=== PATIENT | female | born 1965 | race Caucasian/White ===

== ENCOUNTER → 2017-04-17 | Outpatient (CLI) | payer MEDICARE ==
[2017-04-17 08:50] LABS: Basophils # (A) 0.1 k/uL (0-0.2); Basophils % (A) 1 %; CH 29.8; CHCM 33.1; Eosinophils # (A) 0.1 k/uL (0-0.7); Eosinophils % (A) 2 %; HCT 44.1 % (34.0-46.0); HDW 2.39; HGB 14.5 gm/dL (11.4-16.0); Luc # (Auto) 0.24; Luc % (Auto) 3; Lymphocytes % (A) 26 %; MCH 29.7 pg (25.0-35.0); MCHC 32.8 g/dL (31.0-37.0); MCV 90.5 fL (80.0-100.0); Mean Platelet Volume 7.2; Monocytes # (A) 0.5 k/uL (0-1.0); Monocytes % (A) 6 %; Neutrophils # (A) 4.9 k/uL (1.3-7.7); Neutrophils % (A) 62 %; RBC 4.87 m/uL (3.80-5.40); RDW 12.7 % (11.5-15.5); WBC 7.8 k/uL (3.8-10.6); WBC (Perox) 7.82
[2017-04-17 09:27] LABS: ALT 45 U/L (9-52); AST 30 U/L (14-36); Alkaline Phosphatase 88 U/L (38-126); Anion Gap 12 mmol/L; Blood Urea Nitrogen 15 mg/dL (7-17); Calcium 9.9 mg/dL (8.4-10.2); Carbon Dioxide 27 mmol/L (22-30); Chloride 102 mmol/L (98-107); Cholesterol 218 mg/dL (<200); Glucose 90 mg/dL (74-99); HDL Cholesterol 84 mg/dL (40-60); Non-African American GFR(MDRD) >60 (>60 ml/min/1.73 sqM); Potassium 4.6 mmol/L (3.5-5.1); Sodium 141 mmol/L (137-145); Total Bilirubin 0.6 mg/dL (0.2-1.3); Total Protein 7.5 g/dL (6.3-8.2)
[2017-04-17 16:39] LABS: Iron Saturation 25.88 (12.00-45.00); Iron(FE) 88 ug/dL (50-170); Total Iron Binding Capacity 340 ug/dL (228-460)
[2017-04-17 17:14] LABS: Treponemal Ab Non-Reactive (Non-Reactive)
[2017-04-18 11:10] LABS: Gliadin AB IgA, Deaminated NEGATIVE (NEGATIVE); Gliadin AB IgG, Deaminated NEGATIVE (NEGATIVE); Gliadin AB IgG, Unit <0.4 U/mL; Tis Transglutaminase IgA Unit <0.5 AI; Tis Transglutaminase IgG Unit <0.8 U/mL
== END | disposition home or self-care (01) ==
LOC: LABMAIN 07:40
PROVIDERS: ATTEND Family Medicine
DX: E78.5 Hyperlipidemia, unspecified (principal); R53.83 Other fatigue; L30.9 Dermatitis, unspecified; Z11.3 Encounter for screening for infections with a predominantly sexual mode of transmission
CPT/HCPCS: 36415; 80053; 80061; 80074; 82306; 82607; 82728; 82747; 83516; 83540; 83550; 84439; 84443; 85025; 86780; 87390; 87491; 87591

== ENCOUNTER → 2017-05-23 | Outpatient (CLI) | payer MEDICARE ==
--- NOTE | 2017-05-27 09:48 | MM ---
Reason for exam: screening (asymptomatic). Last mammogram was performed 1 year ago. History: Patient is postmenopausal. Family history of breast cancer in paternal cousin at age 48. Physical Findings: A clinical breast exam by your physician is recommended on an annual basis and results should be correlated with mammographic findings. MG 3D Screening Mammo W/Cad Bilateral CC and MLO view(s) were taken. Prior study comparison: May 22, 2016, bilateral MG 3d diag mammo w/cad JEN. May 04, 2015, mammogram, performed at [facility]. The breast tissue is extremely dense which could obscure a lesion on mammography. There is no discrete abnormality. No significant changes when compared with prior studies. ASSESSMENT: Negative, BI-RAD 1 RECOMMENDATION: Routine screening mammogram of both breasts in 1 year.
== END | disposition home or self-care (01) ==
LOC: RADMAMWWP 08:15
PROVIDERS: ATTEND Family Medicine
DX: Z12.31 Encounter for screening mammogram for malignant neoplasm of breast (principal)
CPT/HCPCS: 77063; G0202

== ENCOUNTER → 2018-03-19 | Outpatient (CLI) | payer MEDICARE ==
--- NOTE | 2018-03-19 15:31 | US ---
EXAMINATION TYPE: US transvaginal DATE OF EXAM: 03/19/2018 COMPARISON: US 2013 CLINICAL HISTORY: R10.2 PELVIC AND PERINEAL PAIN. Pelvic pain x couple months, worse on right side an d lower back, 2, para 2, partial hysterectomy 2001. TECHNIQUE: Transvaginal exam only per ordering physician. Date of LMP: 2001 EXAM MEASUREMENTS: Uterus: surgically absent Endometrial Stripe: surgically absent Right Ovary: not seen Left Ovary: not seen 1. Uterus: surgically absent 2. Endometrium: surgically absent 3. Right Ovary: not seen due to overlying peristalsing bowel 4. Left Ovary: not seen due to overlying peristalsing bowel 5. Bilateral Adnexa: wnl 6. Posterior cul-de-sac: wnl IMPRESSION: Surgical absence of the uterus and nonvisualization of the ovaries, likely due to atrophy . If the ovaries are present and there is further concern pelvic MRI could be performed.
== END | disposition home or self-care (01) ==
LOC: RADUSWWP 14:06
PROVIDERS: ATTEND Family Medicine
DX: R10.2 Pelvic and perineal pain (principal); Z90.710 Acquired absence of both cervix and uterus
CPT/HCPCS: 76830

== ENCOUNTER → 2018-09-25 | Outpatient (CLI) | payer MEDICARE ==
--- NOTE | 2018-09-28 09:43 | MM ---
Reason for exam: screening (asymptomatic). Last mammogram was performed 1 year and 4 months ago. History: Patient is postmenopausal. Family history of breast cancer in paternal cousin at age 48. Physical Findings: A clinical breast exam by your physician is recommended on an annual basis and results should be correlated with mammographic findings. MG 3D Screening Mammo W/Cad Bilateral CC and MLO view(s) were taken. Prior study comparison: May 23, 2017, bilateral MG 3d screening mammo w/cad. May 22, 2016, bilateral MG 3d diag mammo w/cad JEN. The breast tissue is extremely dense which could obscure a lesion on mammography. There is no discrete abnormality. No significant changes when compared with prior studies. ASSESSMENT: Negative, BI-RAD 1 RECOMMENDATION: Routine screening mammogram of both breasts in 1 year.
== END | disposition home or self-care (01) ==
LOC: RADMAMWWP 15:19
PROVIDERS: ATTEND Obstetrics & Gynecology
DX: Z12.31 Encounter for screening mammogram for malignant neoplasm of breast (principal)
CPT/HCPCS: 77063; 77067

== ENCOUNTER → 2018-10-02 | Outpatient (CLI) | payer MEDICARE ==
[2018-10-02 08:04] LABS: Basophils # (A) 0.1 k/uL (0-0.2); Basophils % (A) 1 %; Eosinophils # (A) 0.1 k/uL (0-0.7); Eosinophils % (A) 2 %; HCT 43.8 % (34.0-46.0); HGB 14.3 gm/dL (11.4-16.0); Lymphocytes # (A) 1.7 k/uL (1.0-4.8); Lymphocytes % (A) 26 %; MCH 30.3 pg (25.0-35.0); MCHC 32.7 g/dL (31.0-37.0); MCV 92.6 fL (80.0-100.0); Mean Platelet Volume 7.2; Monocytes # (A) 0.4 k/uL (0-1.0); Monocytes % (A) 6 %; Neutrophils # (A) 4.3 k/uL (1.3-7.7); Neutrophils % (A) 64 %; Platelet Count 273 k/uL (150-450); RBC 4.74 m/uL (3.80-5.40); RDW 13.3 % (11.5-15.5); WBC 6.8 k/uL (3.8-10.6)
[2018-10-02 08:20] LABS: ALT 34 U/L (9-52); AST 32 U/L (14-36); Albumin 4.8 g/dL (3.5-5.0); Alkaline Phosphatase 67 U/L (38-126); Anion Gap 7 mmol/L; Blood Urea Nitrogen 11 mg/dL (7-17); Calcium 9.8 mg/dL (8.4-10.2); Carbon Dioxide 29 mmol/L (22-30); Chloride 106 mmol/L (98-107); Cholesterol 214 mg/dL (<200); Glucose 89 mg/dL (74-99); HDL Cholesterol 91 mg/dL (40-60); LDL Cholesterol,Calculated 109 mg/dL (0-99); Potassium 4.2 mmol/L (3.5-5.1); Sodium 142 mmol/L (137-145); Total Bilirubin 1.1 mg/dL (0.2-1.3); Total Protein 7.8 g/dL (6.3-8.2); Triglycerides 69 mg/dL (<150)
--- NOTE | 2018-10-02 08:38 | BD ---
EXAMINATION TYPE: Axial Bone Density DATE OF EXAM: 10/02/2018 COMPARISON: NONE CLINICAL HISTORY: Height: 5 FT 8 1/2 IN Weight: 119 FRAX RISK QUESTIONS: Secondary Osteoporosis: 3. Menopause before 45: YES RISK FACTORS HISTORY OF: Family History of Osteoporosis: YES Active: NO Postmenopausal woman: PART HYST AGE 37 MEDICATIONS: Additional Medications: GABAPENTIN, VIT D ,B12 INJECTION Additional History: FIBROMYALGIA,NERVE PAIN IN BOTH FEET EXAM MEASUREMENTS: Bone mineral densitometry was performed using the [employer] System. Bone mineral density as measured about the Lumbar spine is: ----- L1-L4(G/cm2): 0.857 T Score Values are as follows: ----- L2: -2.9 ----- L3: -2.6 ----- L4: -2.9 ----- L1-L4: -2.7 Bone mineral density has: DECREASED -1.6 % since study of: 2016 Bone mineral density about the R hip (g/cm2): 0.685 Bone mineral density about the L hip (g/cm2): 0.692 T Score values are as follows: -----R Neck: -2.5 -----L Neck: -2.5 -----R Total: -3.3 -----L Total: -3.1 Bone mineral density has: DECREASED -4.0 % since study of: 2016 IMPRESSION: Osteoporosis NOTE: T-SCORE=SD OF THE YOUNG ADULT MEAN.
== END | disposition home or self-care (01) ==
LOC: RADBDWWP 07:07
PROVIDERS: ATTEND Family Medicine
DX: M81.0 Age-related osteoporosis without current pathological fracture (principal); E78.5 Hyperlipidemia, unspecified
CPT/HCPCS: 36415; 77080; 80053; 80061; 84443; 85025

== ENCOUNTER → 2019-11-16 | Outpatient (CLI) | payer MEDICARE ==
--- NOTE | 2019-11-17 08:58 | MM ---
Reason for exam: additional evaluation requested from prior study. Last mammogram was performed 1 year and 2 months ago. History: Patient is postmenopausal. Family history of breast cancer in paternal cousin at age 48. Physical Findings: Nurse did not find any significant physical abnormalities on exam. MG 3D Diag Mammo W/Cad JEN Bilateral CC and MLO view(s) were taken. Prior study comparison: September 25, 2018, bilateral MG 3d screening mammo w/cad. May 23, 2017, bilateral MG 3d screening mammo w/cad. The breast tissue is extremely dense which could obscure a lesion on mammography. There are benign appearing vascular calcifications bilaterally. There is no discrete abnormality. These results were verbally communicated with the patient and result sheet given to the patient on 11/16/19. ASSESSMENT: Benign, BI-RAD 2 RECOMMENDATION: Routine screening mammogram of both breasts in 1 year. Manage on a clinical basis with regard to left pain axilla.
== END | disposition home or self-care (01) ==
LOC: RADMAMWWP 14:19
PROVIDERS: ATTEND Obstetrics & Gynecology
DX: N64.4 Mastodynia (principal)
CPT/HCPCS: 77066; G0279; 77062

== ENCOUNTER → 2020-01-14 | Outpatient (CLI) | payer MEDICARE ==
--- NOTE | 2020-01-14 10:21 | XR ---
EXAMINATION TYPE: XR chest 2V DATE OF EXAM: 01/14/2020 COMPARISON: NONE HISTORY: Shortness of breath TECHNIQUE: Frontal and lateral views of the chest are obtained. FINDINGS: Scattered senescent parenchymal changes noted. Hyperinflation compatible with COPD. No evidence for infiltrate. No evidence for atelectasis. Heart size is stable. Mediastinal structures are stable and grossly unremarkable. No evidence for hilar prominence. Degenerative changes dorsal spine. IMPRESSION: 1. No evidence for acute pulmonary disease.
== END | disposition home or self-care (01) ==
LOC: RADXRMAIN 09:50
PROVIDERS: ATTEND Family Medicine
DX: R91.8 Other nonspecific abnormal finding of lung field (principal)
CPT/HCPCS: 71046

== ENCOUNTER → 2020-11-29 | Outpatient (CLI) | payer MEDICARE ==
--- NOTE | 2020-12-01 11:53 | MM ---
Reason for exam: screening (asymptomatic). Last mammogram was performed 1 year ago. History: Patient is postmenopausal. Family history of breast cancer in paternal cousin at age 48. Physical Findings: A clinical breast exam by your physician is recommended on an annual basis and results should be correlated with mammographic findings. MG 3D Screening Mammo W/Cad Bilateral CC and MLO view(s) were taken. Prior study comparison: November 16, 2019, bilateral MG 3d diag mammo w/cad JEN. September 25, 2018, bilateral MG 3d screening mammo w/cad. The breast tissue is heterogeneously dense. This may lower the sensitivity of mammography. Benign vascular calcifications. No significant changes when compared with prior studies. ASSESSMENT: Negative, BI-RAD 1 RECOMMENDATION: Routine screening mammogram of both breasts in 1 year.
== END | disposition home or self-care (01) ==
LOC: RADMAMWWP 09:53
PROVIDERS: ATTEND Obstetrics & Gynecology
DX: Z12.31 Encounter for screening mammogram for malignant neoplasm of breast (principal)
CPT/HCPCS: 77063; 77067

== ENCOUNTER → 2021-02-26 | Outpatient (CLI) | payer MEDICARE ==
--- NOTE | 2021-02-26 18:39 | BD ---
EXAMINATION TYPE: Axial Bone Density DATE OF EXAM: 02/26/2021 COMPARISON: 10.02.2018 CLINICAL HISTORY: 55 YR OLD FEMALE......ICD-10 CODE: Z78.0 POST KATIE Height: 67.4 Weight: 127 FRAX RISK QUESTIONS: Family History (Parent hip fracture): YES Secondary Osteoporosis: YES 3. Menopause before 45: YES 5. Chronic liver disease: LIVER ENZYMES HIGH RISK FACTORS HISTORY OF: Family History of Osteoporosis: YES, GRANDMOTHER WITH FX Diet low in dairy products/other sources of calcium: YES Postmenopausal woman: YES, HYST AT AGE 37 Hyperparathyroidism: NO Adrenal Insufficiency: NO MEDICATIONS: Osteoporosis Medications: PRESCRIBED, BUT NEVER TOOK Additional Medications: VIT D, GABAPENTIN, HYPERCALCEMIA, XANAX, REFLUX MEDS, B12 INJ, MAGNESIUM Additional History: FIBROMYALGIA, NEUROPATHY IN BOTH FEET, HIATAL HERNIA , REFLUX, HYPERCALCEMIA, OST EOARTHRITIS, EXAM MEASUREMENTS: Bone mineral densitometry was performed using the [employer] System. Bone mineral density as measured about the Lumbar spine is: ----- L1-L4(G/cm2): 0.835 T Score Values are as follows: ----- L1: -2.7 ----- L2: -3.0 ----- L3: -2.7 ----- L4: -3.2 ----- L1-L4: -2.9 Bone mineral density has: Decreased -2.4% since study of: 10.02.2018 Bone mineral density about the R hip (g/cm2): 0.581 Bone mineral density about the L hip (g/cm2): 0.644 T Score values are as follows: -----R Neck: -2.6 -----L Neck: -2.6 -----R Total: -3.4 -----L Total: -2.9 Bone mineral density has: Increased 1.3% since study of: 10.02.2018 FRAX%s: THERE IS A 16.3% CHANCE FOR A MAJOR OSTEOPOROTIC FX AND A 2.0% FOR HIP.......PROBABILITY FOR FX IN 10 YRS TIME IMPRESSION: Osteoporosis (T Score less than -2.5). There is increased fracture risk and therapy is usually indicated based on age. Re-Screen 1-2 years. NOTE: T-SCORE=SD OF THE YOUNG ADULT MEAN.
== END | disposition home or self-care (01) ==
LOC: RADBDWWP 08:09
PROVIDERS: ATTEND Family Medicine
DX: M81.0 Age-related osteoporosis without current pathological fracture (principal); Z78.0 Asymptomatic menopausal state
CPT/HCPCS: 77080

== ENCOUNTER → 2021-08-02 | Outpatient (CLI) | payer MEDICARE ==
[2021-08-02 15:26] LABS: ALT 19 U/L (8-44); AST 26 U/L (13-35); Albumin 4.6 g/dL (3.8-4.9); Albumin/Globulin Ratio 1.65 (1.60-3.17); Alkaline Phosphatase 76 U/L (41-126); BUN/Creat Ratio 19.53 Ratio (12.00-20.00); Blood Urea Nitrogen 13.4 mg/dL (9.0-27.0); Calcium 9.5 mg/dL (8.7-10.3); Carbon Dioxide 23.7 mmol/L (20.0-27.5); Chloride 103 mmol/L (96-109); Globulin 2.8 g/dL (1.6-3.3); Glucose 92 mg/dL (70-110); LDL Cholesterol,Calculated 102.4 mg/dL (0.0-131.0); Non-African American GFR(CKD) 97.5 (60.0-200.0); Potassium 4.2 mmol/L (3.5-5.5); Sodium 139 mmol/L (135-145); Total Protein 7.4 g/dL (6.2-8.2); VLDL Calculation 12.18 mg/dL (5.00-40.00)
== END | disposition home or self-care (01) ==
LOC: LABWHC1 09:32
PROVIDERS: ATTEND Internal Medicine Interventional Cardiology
DX: R00.2 Palpitations (principal); E78.2 Mixed hyperlipidemia
CPT/HCPCS: 36415; 80053; 80061; 84443

== ENCOUNTER → 2021-11-30 | Outpatient (CLI) | payer MEDICARE ==
--- NOTE | 2021-11-30 12:07 | MM ---
Reason for Exam: Screening (asymptomatic). Last screening mammogram was performed 12 month(s) ago. Patient History: Menarche at age 13. First Full-Term at age 19. Hysterectomy at age 37. Postmenopausal. Paternal cousin had breast cancer, age 48. Risk Values: Samantha 5 year model risk: 0.9%. NCI Lifetime model risk: 5.9%. Prior Study Comparison: 09/25/2018 Bilateral Screening Mammogram, [facility]. 11/16/2019 Bilateral Diagnostic Mammogram, [facility]. 11/29/2020 Bilateral Screening Mammogram, [facility]. Tissue Density: The breast tissue is heterogeneously dense. This may lower the sensitivity of mammography. Findings: Analyzed By CAD. There are benign-appearing vascular calcifications in the bilateral breasts redemonstrated. There is no suspicious group of microcalcifications or new suspicious mass in either breast. Overall Assessment: Negative, BI-RAD 1 Management: Screening Mammogram of both breasts in 1 year. Some advise bilateral breast ultrasound surveillance in patient's with background dense tissue. Electronically signed and approved by: Zack Campbell M.D.
== END | disposition home or self-care (01) ==
LOC: RADMAMWWP 09:14
PROVIDERS: ATTEND Obstetrics & Gynecology
DX: Z12.31 Encounter for screening mammogram for malignant neoplasm of breast (principal); Z78.0 Asymptomatic menopausal state; Z80.3 Family history of malignant neoplasm of breast
CPT/HCPCS: 77063; 77067

== ENCOUNTER → 2022-12-02 | Outpatient (CLI) | payer MEDICARE ==
--- NOTE | 2022-12-02 09:43 | MM ---
Reason for Exam: Screening (asymptomatic). Last screening mammogram was performed 12 month(s) ago. Patient History: Menarche at age 13. First Full-Term at age 19. Hysterectomy at age 37. Postmenopausal. Paternal cousin had breast cancer, age 48. Risk Values: Samantha 5 year model risk: 0.9%. NCI Lifetime model risk: 5.7%. Prior Study Comparison: 11/16/2019 Bilateral Diagnostic Mammogram, [facility]. 11/29/2020 Bilateral Screening Mammogram, [facility]. 11/30/2021 Bilateral MG 3D screening mammo w/cad, [facility]. Tissue Density: The breast tissue is heterogeneously dense. This may lower the sensitivity of mammography. Findings: Analyzed By CAD. There is no suspicious group of microcalcifications or new suspicious mass in either breast. Overall Assessment: Negative, BI-RAD 1 Management: Screening Mammogram of both breasts in [address] [facility] will attempt to contact patient to return for supplemental views and ultrasound if indicated. Patient should continue monthly self-breast exams. A clinical breast exam by your physician is recommended on an annual basis. This exam should not preclude additional follow-up of suspicious palpable abnormalities. Note on Samantha scores and lifetime risk: 1. A Samantha score greater than 3% is considered moderate risk. If this is the case, consider specialist referral to assess eligibility for a risk reducing agent. 2. If overall lifetime risk for the development of breast cancer is 20% or higher, the patient may qualify for future screening with alternating mammogram and breast MRI. Electronically signed and approved by: Dante Vogt DO
== END | disposition home or self-care (01) ==
LOC: RADMAMWWP 08:34
PROVIDERS: ATTEND Family Medicine
DX: Z12.31 Encounter for screening mammogram for malignant neoplasm of breast (principal); Z78.0 Asymptomatic menopausal state; Z80.3 Family history of malignant neoplasm of breast
CPT/HCPCS: 77063; 77067

== ENCOUNTER → 2023-04-24 | Outpatient (CLI) | payer MEDICARE ==
[2023-04-25 02:36] LABS: ALT 21 U/L (8-44); AST 23 U/L (13-35); Albumin 4.7 g/dL (3.8-4.9); Albumin/Globulin Ratio 1.74 Ratio (1.60-3.17); Alkaline Phosphatase 83 U/L (41-126); BUN/Creat Ratio 13.86 Ratio (12.00-20.00); Blood Urea Nitrogen 9.7 mg/dL (9.0-27.0); Carbon Dioxide 23.8 mmol/L (21.6-31.8); Chloride 99 mmol/L (96-109); Globulin 2.7 g/dL (1.6-3.3); Glucose 87 mg/dL (70-110); Potassium 4.7 mmol/L (3.5-5.5); Sodium 136 mmol/L (135-145); Total Bilirubin 0.4 mg/dL (0.3-1.2); Total Protein 7.4 g/dL (6.2-8.2)
[2023-04-25 02:59] LABS: MCH 29.7 pg (27.0-32.0); MCHC 32.5 g/dL (32.0-37.0); MCV 91.3 FL (80.0-97.0); Mean Platelet Volume 9.7 FL (9.5-12.2); NRBC Per 100 WBC 0 X 10*3/uL (0.00-0.01); Platelet Count 384 X 10*3/uL (140-440); RBC 4.38 X 10*6/uL (4.10-5.20); WBC 10.69 X 10*3/uL (4.50-10.00)
== END | disposition home or self-care (01) ==
LOC: LABWHC1 14:16
PROVIDERS: ATTEND Internal Medicine Interventional Cardiology
DX: R55 Syncope and collapse (principal)
CPT/HCPCS: 36415; 80053; 85027

== ENCOUNTER → 2023-08-29 | Outpatient (CLI) | payer MEDICARE ==
--- NOTE | 2023-08-29 14:10 | BD ---
EXAMINATION TYPE: Axial Bone Density DATE OF EXAM: 08/29/2023 CLINICAL HISTORY: 58 years old Female. ICD-10 CODE: M81.0 AGE-RELATED OSTEOPOROSIS W/O CURRENT PATHO LO Height: 67.5 Weight: 133 FRAX RISK QUESTIONS: Family History (Parent hip fracture): yes History of Fracture in Adulthood: yes Secondary Osteoporosis: yes 3. Menopause before 45: yes 5. Chronic liver disease: yes RISK FACTORS HISTORY OF: arthritis, neuropathy both feet, fibromyalgia, hypercalcemia, reflux, hip pain, sciatica, osteoporosi s hx of rib fractures on right side MEDICATIONS: vit d, gabapentin, xanax, reflux meds, magnesium Osteoporosis Medications: refuses to take it EXAM MEASUREMENTS: Bone mineral densitometry was performed using the [employer] System. Bone mineral density as measured about the Lumbar spine is: ----- L1-L4(G/cm2): 0.777 T Score Values are as follows: ----- L1: -3.1 ----- L2: -3.5 ----- L3: -3.2 ----- L4: -3.7 ----- L1-L4: -3.4 Z Score Values are as follows: ----- L1: -1.9 ----- L2: -2.3 ----- L3: -1.9 ----- L4: -2.5 ----- L1-L4: -2.1 Bone mineral density has: Decreased -6.9% since study of: 02.26.2021 Bone mineral density about the R hip (g/cm2): 0.569 Bone mineral density about the L hip (g/cm2): 0.624 T Score values are as follows: -----R Neck: -2.9 -----L Neck: -2.7 -----R Total: -3.5 -----L Total: -3.0 Z Score values are as follows: -----R Neck: -1.6 -----L Neck: -1.5 -----R Total: -2.5 -----L Total: -2.1 Bone mineral density has: Decreased -2.5% since study of: 02.26.2021 FRAX%s: The graph provided illustrates a 33.6% chance for a major osteoporotic fx and a 5.9% chance f or the hips probability for fx in 10 years time. IMPRESSION: Osteoporosis (T Score less than -2.5). There is increased fracture risk and therapy is usually indicated based on age. Re-Screen 1-2 years. NOTE: T-SCORE=SD OF THE YOUNG ADULT MEAN.
== END | disposition home or self-care (01) ==
LOC: RADBDWWP 09:22
PROVIDERS: ATTEND Family Medicine
DX: M81.0 Age-related osteoporosis without current pathological fracture (principal); Z78.0 Asymptomatic menopausal state
CPT/HCPCS: 77080

== ENCOUNTER 2023-10-15 13:24 | Observation (INO) | payer MEDICARE ==
--- NOTE | 2023-10-15 15:09 | ED ---
General Adult HPI - General Chief complaint: Chest Pain Stated complaint: Chest Pain Time Seen by Provider: 10/15/23 14:55 Source: patient, RN notes reviewed, old records reviewed Mode of arrival: ambulatory Limitations: no limitations - History of Present Illness Initial comments: This is a 58-year-old female presents to the emergency department stating on Friday she was mowing the lawn and moving quite quickly and then she started getting this chest heaviness and some tingling down the arm as well as shortness of breath. Patient also complained of a little epigastric abdominal discomfort at that time. Patient states she came in eventually rested and it seemed to go away. Patient states today it came back when she was outside which she was not doing any exertion and the heaviness came back significantly and she started getting sweaty and against having some tingling down the left arm. Patient denies any fever chills or cough. Patient states she does have a history of anxiety as well. Patient states the chest heaviness continues at this time and so does the tingling in the arm. Patient does have high cholesterol history and a strong family history of heart disease. - Related Data Home Medications Medication Instructions Recorded Confirmed Gabapentin [Neurontin] 600 mg PO QID PRN 03/11/14 03/05/16 Cyanocobalamin (Vitamin B-12) 5,000 mcg PO DAILY 01/22/16 03/05/16 [Vitamin B12] Ergocalciferol [Vitamin D2] 50,000 unit PO MO 01/22/16 03/05/16 Ascorbic Acid [Vitamin C] 500 mg PO DAILY 03/05/16 03/05/16 Previous Rx's Medication Instructions Recorded Ibuprofen [Motrin] 600 mg PO Q6HR PRN #28 tab 03/05/16 methocarbamoL [Robaxin] 750 mg PO TID #21 tab 03/05/16 Allergies Allergy/AdvReac Type Severity Reaction Status Date / Time amitriptyline Allergy "PSYCHOSIS" Verified 10/15/23 13:47 Sulfa (Sulfonamide Allergy Swelling Verified 10/15/23 13:47 Antibiotics) Review of Systems ROS Statement: Those systems with pertinent positive or pertinent negative responses have been documented in the HPI. ROS Other: All systems not noted in ROS Statement are negative. Past Medical History Past Medical History: Asthma, GERD/Reflux, Osteoarthritis (OA) Additional Past Medical History / Comment(s): NEUROPATHY,HIATAL HERNIA,TARSAL TUNNEL History of Any Multi-Drug Resistant Organisms: None Reported Past Surgical History: Hysterectomy, Tonsillectomy Additional Past Surgical History / Comment(s): EGD,COLONOSCOPY, RK EYE SURGERY Past Anesthesia/Blood Transfusion Reactions: No Reported Reaction Past Psychological History: Anxiety Smoking Status: Never smoker Past Alcohol Use History: Rare Past Drug Use History: None Reported - Past Family History Father Family Medical History: Cancer Mother Family Medical History: Cancer Additional Family Medical History / Comment(s): LUNG CANCER General Exam - General Exam Comments Initial Comments: GENERAL: Patient is well-developed and well-nourished. Patient is nontoxic and well- hydrated and is in mild distress. ENT: Neck is soft and supple. No significant lymphadenopathy is noted. Oropharynx is clear. Moist mucous membranes. Neck has full range of motion without eliciting any pain. EYES: The sclera were anicteric and conjunctiva were pink and moist. Extraocular movements were intact and pupils were equal round and reactive to light. Eyelids were unremarkable. PULMONARY: Unlabored respirations. Good breath sounds bilaterally. No audible rales rhonchi or wheezing was noted. CARDIOVASCULAR: There is a regular rate and rhythm without any murmurs gallops or rubs. ABDOMEN: Soft and nontender with normal bowel sounds. SKIN: Skin is clear with no lesions or rashes and otherwise unremarkable. NEUROLOGIC: Patient is alert and oriented x3. Cranial nerves II through XII are grossly intact. Motor and sensory are also intact. Normal speech, volume and content. Symmetrical smile. MUSCULOSKELETAL: Normal extremities with adequate strength and full range of motion. No lower extremity swelling or edema. No calf tenderness. LYMPHATICS: No significant lymphadenopathy is noted PSYCHIATRIC: Patient is mildly anxious Limitations: no limitations Course Vital Signs 10/15/23 10/15/23 13:42 15:06 Temperature 98.1 F Pulse Rate 92 88 Respiratory 18 18 Rate Blood Pressure 150/89 155/79 O2 Sat by Pulse 100 98 Oximetry Medical Decision Making - Medical Decision Making EKG is interpreted by myself. EKG shows a sinus rhythm at 70 bpm CA interval is 156 QRS of 74 QT interval 364 QTc is 397. Patient's EKG shows no ST segment elevation or depression. Was pt. sent in by a medical professional or institution (, PA, COMMISSION AUDITOR, urgent care, hospital, or alf...) When possible be specific @ -No Did you speak to anyone other than the patient for history (EMS, parent, family, police, friend...)? What history was obtained from this source @ -No Did you review nursing and triage notes (agree or disagree)? Why? @ -I reviewed and agree with nursing and triage notes Were old charts reviewed (outside hosp., previous admission, EMS record, old EKG, old radiological studies, urgent care reports/EKG's, alf records)? Report findings @ -No old charts were reviewed Differential Diagnosis (chest pain, altered mental status, abdominal pain women, abdominal pain men, vaginal bleeding, weakness, fever, dyspnea, syncope, headache, dizziness, GI bleed, back pain, seizure, CVA, palpatations, mental health, musculoskeletal)? @ -MDM differential chest EKG interpreted by me (3pts min.). @ -Pain X-rays interpreted by me (1pt min.). @ -Chest x-ray shows no acute abnormality CT interpreted by me (1pt min.). @ -None done U/S interpreted by me (1pt. min.). @ -None done What testing was considered but not performed or refused? (CT, X-rays, U/S, labs)? Why? @ -None What meds were considered but not given or refused? Why? @ -None Did you discuss the management of the patient with other professionals (professionals i.e. , PA, COMMISSION AUDITOR, lab, RT, psych nurse, social media strategist, quality improvement manager, teacher, property disposal officer, case packer and sealer)? Give summary @ -I spoke with [facility] they agreed to admit the patient admit the patient wrote admitting orders Was smoking cessation discussed for >3mins.? @ -No Was critical care preformed (if so, how long)? @ -No Were there social determinants of health that impacted care today? How? (Homelessness, low income, unemployed, alcoholism, drug addiction, transportation, low edu. Level, literacy, decrease access to med. care, long term, rehab)? @ -No Was there de-escalation of care discussed even if they declined (Discuss DNR or withdrawal of care, Hospice)? DNR status @ -No What co-morbidities impacted this encounter? (DM, HTN, Smoking, COPD, CAD, Cancer, CVA, ARF, Chemo, Hep., AIDS, mental health diagnosis, sleep apnea, m orbid obesity)? @ -None Was patient admitted / discharged? Hospital course, mention meds given and r oute, prescriptions, significant lab abnormalities, going to OR and other pertinent info. @ -Patient received Ativan in the emergency department she was feeling better from that but she still had chest pressure so was at this point in time I reviewed all labs which were normal and I spoke with the significant hospitalist and they agreed to admit the patient to the patient and consult cardiology Undiagnosed new problem with uncertain prognosis? @ -No Drug Therapy requiring intensive monitoring for toxicity (Heparin, Nitro, Insulin, Cardizem)? @ -No Were any procedures done? @ -No Diagnosis/symptom? @ -Chest pain Acute, or Chronic, or Acute on Chronic? @ -Acute Uncomplicated (without systemic symptoms) or Complicated (systemic symptoms)? @ -Complicated Side effects of treatment? @ -No Exacerbation, Progression, or Severe Exacerbation? @ -No Poses a threat to life or bodily function? How? (Chest pain, USA, MS, pneumonia, PE, COPD, DKA, ARF, appy, cholecystitis, CVA, Diverticulitis, Homicidal, Suicidal, threat to staff... and all critical care pts) @ -Yes this could lead to an MS and endorgan dysfunction - Lab Data Result diagrams: 10/15/23 15:21 10/15/23 15:21 Lab Results 10/15/23 10/15/23 10/15/23 Range/Units 15:21 15:21 15:21 WBC 11.2 H (3.8-10.6) k/uL RBC 4.47 (3.80-5.40) m/uL Hgb 13.3 (11.4-16.0) gm/dL Hct 39.8 (34.0-46.0) % MCV 89.0 (80.0-100.0) fL MCH 29.7 (25.0-35.0) pg MCHC 33.4 (31.0-37.0) g/dL RDW 13.1 (11.5-15.5) % Plt Count 272 (150-450) k/uL MPV 7.8 Neutrophils % 86 % Lymphocytes % 8 % Monocytes % 4 % Eosinophils % 0 % Basophils % 0 % Neutrophils # 9.6 H (1.3-7.7) k/uL Lymphocytes # 1.0 (1.0-4.8) k/uL Monocytes # 0.5 (0-1.0) k/uL Eosinophils # 0.0 (0-0.7) k/uL Basophils # 0.1 (0-0.2) k/uL PT 10.2 (10.0-12.5) sec INR 0.9 (<1.2) APTT 24.4 (22.0-30.0) sec D-Dimer 0.20 (<0.60) mg/L FEU Sodium 132 L (137-145) mmol/L Potassium 4.2 (3.5-5.1) mmol/L Chloride 101 (98-107) mmol/L Carbon Dioxide 20 L (22-30) mmol/L Anion Gap 11 mmol/L BUN 12 (7-17) mg/dL Creatinine 0.61 (0.52-1.04) mg/dL Est GFR (CKD-EPI)AfAm >90 (>60 ml/min/1.73 sqM) Est GFR (CKD-EPI)NonAf >90 (>60 ml/min/1.73 sqM) Glucose 87 (74-99) mg/dL Calcium 9.4 (8.4-10.2) mg/dL Magnesium 1.8 (1.6-2.3) mg/dL Total Bilirubin 0.7 (0.2-1.3) mg/dL AST 31 (14-36) U/L ALT 23 (4-34) U/L Alkaline Phosphatase 106 (38-126) U/L Troponin I (0.000-0.034) ng/mL Total Protein 7.7 (6.3-8.2) g/dL Albumin 4.6 (3.5-5.0) g/dL Lipase 161 (23-300) U/L 10/15/23 Range/Units 15:21 WBC (3.8-10.6) k/uL RBC (3.80-5.40) m/uL Hgb (11.4-16.0) gm/dL Hct (34.0-46.0) % MCV (80.0-100.0) fL MCH (25.0-35.0) pg MCHC (31.0-37.0) g/dL RDW (11.5-15.5) % Plt Count (150-450) k/uL MPV Neutrophils % % Lymphocytes % % Monocytes % % Eosinophils % % Basophils % % Neutrophils # (1.3-7.7) k/uL Lymphocytes # (1.0-4.8) k/uL Monocytes # (0-1.0) k/uL Eosinophils # (0-0.7) k/uL Basophils # (0-0.2) k/uL PT (10.0-12.5) sec INR (<1.2) APTT (22.0-30.0) sec D-Dimer (<0.60) mg/L FEU Sodium (137-145) mmol/L Potassium (3.5-5.1) mmol/L Chloride (98-107) mmol/L Carbon Dioxide (22-30) mmol/L Anion Gap mmol/L BUN (7-17) mg/dL Creatinine (0.52-1.04) mg/dL Est GFR (CKD-EPI)AfAm (>60 ml/min/1.73 sqM) Est GFR (CKD-EPI)NonAf (>60 ml/min/1.73 sqM) Glucose (74-99) mg/dL Calcium (8.4-10.2) mg/dL Magnesium (1.6-2.3) mg/dL Total Bilirubin (0.2-1.3) mg/dL AST (14-36) U/L ALT (4-34) U/L Alkaline Phosphatase (38-126) U/L Troponin I <0.012 (0.000-0.034) ng/mL Total Protein (6.3-8.2) g/dL Albumin (3.5-5.0) g/dL Lipase (23-300) U/L Disposition Clinical Impression: Chest pain Disposition: ADMITTED IP TO THIS [facility] Referrals: Luigi Ferreira MD [Primary Care Provider] - 1-2 days Time of Disposition: 18:23
[2023-10-15] MEDS: LORazepam 2 MG/ML INJ IV STA (15:31)
[2023-10-15] MEDS: ASPIRIN 81 MG PO STA (15:34)
[2023-10-15 15:43] LABS: ALT 23 U/L (4-34); AST 31 U/L (14-36); African American GFR (CKD) >90 (>60 ml/min/1.73 sqM); Albumin 4.6 g/dL (3.5-5.0); Alkaline Phosphatase 106 U/L (38-126); Anion Gap 11 mmol/L; Basophils # (A) 0.1 k/uL (0-0.2); Basophils % (A) 0 %; Blood Urea Nitrogen 12 mg/dL (7-17); Calcium 9.4 mg/dL (8.4-10.2); Carbon Dioxide 20 mmol/L (22-30); Chloride 101 mmol/L (98-107); Eosinophils % (A) 0 %; Glucose 87 mg/dL (74-99); HCT 39.8 % (34.0-46.0); HGB 13.3 gm/dL (11.4-16.0); Lipase 161 U/L (23-300); Lymphocytes % (A) 8 %; MCH 29.7 pg (25.0-35.0); MCHC 33.4 g/dL (31.0-37.0); Magnesium 1.8 mg/dL (1.6-2.3); Mean Platelet Volume 7.8; Monocytes # (A) 0.5 k/uL (0-1.0); Monocytes % (A) 4 %; Neutrophils # (A) 9.6 k/uL (1.3-7.7); Neutrophils % (A) 86 %; Non-African American GFR(CKD) >90 (>60 ml/min/1.73 sqM); Platelet Count 272 k/uL (150-450); Potassium 4.2 mmol/L (3.5-5.1); RBC 4.47 m/uL (3.80-5.40); RDW 13.1 % (11.5-15.5); Sodium 132 mmol/L (137-145); Total Bilirubin 0.7 mg/dL (0.2-1.3); Total Protein 7.7 g/dL (6.3-8.2); WBC 11.2 k/uL (3.8-10.6)
[2023-10-15 15:50] LABS: INR 0.9 (<1.2); Partial Thromboplastin Time 24.4 sec (22.0-30.0); Prothrombin Time 10.2 sec (10.0-12.5)
[2023-10-15] MEDS: NITROGLYCERIN OINT 1 INCH/GM PACKET TOPICAL STA (16:30)
--- NOTE | 2023-10-15 17:01 | XR ---
EXAMINATION TYPE: XR chest 2V DATE OF EXAM: 10/15/2023 COMPARISON: The 14/06/2019 INDICATION: Chest pain TECHNIQUE: Frontal and lateral views of the chest are obtained. FINDINGS: The heart size is normal. The pulmonary vasculature is normal. The lungs are clear. IMPRESSION: 1. No acute pulmonary process.
[2023-10-15] MEDS ORDERED: NITROGLYCERIN SL TABS 0.4 MG TAB SUBLINGUAL PRN (18:23)
[2023-10-15] MEDS: NITROGLYCERIN OINT 1 INCH/GM PACKET TOPICAL SCH (23:17)
[2023-10-16] MEDS: ASPIRIN 325 MG TAB PO SCH (08:25)
[2023-10-16 08:52] LABS: Chol/HDL Ratio 2.26 Ratio; LDL Cholesterol,Calculated 105.2 mg/dL (0.0-131.0); VLDL Calculation 10.26 mg/dL (5.00-40.00)
[2023-10-16] MEDS ORDERED: ALPRAZolam 0.25 MG TAB PO PRN (10:08)
--- NOTE | 2023-10-16 10:45 | P.CRDCN ---
History of Present Illness History of present illness: HISTORY OF PRESENT ILLNESS: This is a 58-year-old female with a past medical history significant for hyperlipidemia and nicotine dependence. Patient follows in the office with Dr. Meneses. We have been asked to see the patient in consultation for chest pain. Patient examined at the bedside. Patient states she was cutting the grass on Friday when she developed chest heaviness and discomfort. Yesterday, she felt fine in the morning. She states she was upset in the morning due to an issue with a neighbor. She states she was outside with some workers that were working on her house. She reports she picked up a few sticks in the yard. She states when she came inside she felt chest pain with radiation into her arm. She reports she felt lightheaded yesterday. She reports SOB this morning with conservation. She denies chest pain or pressure at the time of examination. DIAGNOSTICS: - EKG reveals sinus mechanism with no signs of acute ischemia. - Chest xray for acute process. - Laboratory data: WBC 11.2. Hemoglobin 13.3. Platelet count 272. D-dimer 0.20. Sodium 132. Potassium 4.2. BUN 12. Creatinine 0.61. Magnesium 1.8. Troponin negative x 3. - Current home cardiac medications include none. - Most recent echocardiogram obtained in September 2021 revealing normal EF, mild TR, mild MR -Patient underwent stress testing in August 2021 which was negative for ischemia REVIEW OF SYSTEMS: At the time of my exam: CONSTITUTIONAL: Denies fever or chills. HEENT: Denies blurred vision, vision changes, or eye pain. Denies hemoptysis CARDIOVASCULAR: Denies chest pain. Denies orthopnea. Denies PND. Denies palpitations RESPIRATORY: Denies shortness of breath. GASTROINTESTINAL: Denies abdominal pain. Denies nausea or vomiting. HEMATOLOGIC: Denies bleeding disorders. GENITOURINARY: Denies any blood in urine. SKIN: Denies pruitis. Denies rash. PHYSICAL EXAM: VITAL SIGNS: Reviewed. GENERAL: Well-developed in no acute distress. HEENT: Head is normocephalic. Pupils are equal, round. Sclerae anicteric. Mucous membranes of the mouth are moist. Neck supple. No JVD or thyromegaly LUNGS: Respirations even and unlabored. Lungs essentially clear to auscultation bilaterally. HEART: Regular rate and rhythm. S1 and S2 heard. ABDOMEN: Soft. Nondistended. Nontender. EXTREMITIES: Normal range of motion. No clubbing or cyanosis. Peripheral pulses intact. No lower extremity edema NEUROLOGIC: Awake and alert. Oriented x 3. ASSESSMENT: Chest pain, troponin negative x 3 Hyperlipidemia, not on statin therapy, LDL 105 Nicotine dependence History of syncope PLAN: An acute coronary event has been ruled out Obtain 2D echo to assess cardiac structure and function Patient to undergo stress testing today If negative, she may be discharged home today from a cardiac standpoint Further recommendations pending patient course Nurse practitioner note has been reviewed by physician. Signing provider agrees with the documented findings, assessment, and plan of care documented by MASTER PLUMBER as a scribe. Past Medical History Past Medical History: Asthma, GERD/Reflux, Osteoarthritis (OA), Syncope Additional Past Medical History / Comment(s): NEUROPATHY,HIATAL HERNIA,TARSAL TUNNEL, History of Any Multi-Drug Resistant Organisms: None Reported Past Surgical History: Hysterectomy, Tonsillectomy Additional Past Surgical History / Comment(s): EGD,COLONOSCOPY, RT EYE SURGERY,stress test Past Anesthesia/Blood Transfusion Reactions: No Reported Reaction Past Psychological History: Anxiety Smoking Status: Never smoker Past Alcohol Use History: Rare Past Drug Use History: None Reported - Past Family History Father Family Medical History: Cancer Mother Family Medical History: Cancer Additional Family Medical History / Comment(s): LUNG CANCER Medications and Allergies Home Medications Medication Instructions Recorded Confirmed Type ALPRAZolam [Xanax] 0.125 - 0.25 mg PO DAILY PRN 10/15/23 10/15/23 History Magnesium(Unknown Dose) 1 tab PO DAILY 10/15/23 10/15/23 History Vitamin C(Unknown Dose) 1 tab PO DAILY 10/15/23 10/15/23 History Vitamin D3(Unknown Dose) 1 tab PO DAILY 10/15/23 10/15/23 History Zinc(Unknown Dose) 1 tab PO DAILY 10/15/23 10/15/23 History Allergies Allergy/AdvReac Type Severity Reaction Status Date / Time cantaloupe Allergy Rash/Hives Verified 10/15/23 18:34 Sulfa (Sulfonamide Allergy Rash all Verified 10/15/23 18:34 Antibiotics) over amitriptyline AdvReac "PSYCHOSIS" Verified 10/15/23 18:34 Physical Exam Vitals: Vital Signs Temp Pulse Pulse Resp BP BP Pulse Ox 10/16/23 07:00 97.9 F 77 14 125/74 100 10/16/23 02:17 98.4 F 80 15 101/59 97 10/15/23 22:35 98.5 F 83 15 129/77 98 10/15/23 21:59 74 16 126/88 99 10/15/23 19:26 107 H 18 131/77 98 10/15/23 15:06 88 18 155/79 98 10/15/23 13:42 98.1 F 92 18 150/89 100 Intake and Output 10/15/23 10/16/23 10/16/23 22:59 06:59 14:59 Other: # Voids 2 Weight 61.235 kg Results 10/15/23 15:21 10/15/23 15:21 Cardiac Enzymes 10/15/23 10/15/23 10/15/23 Range/Units 15:21 15:21 18:55 AST 31 (14-36) U/L Troponin I <0.012 <0.012 (0.000-0.034) ng/mL 10/15/23 Range/Units 22:18 AST (14-36) U/L Troponin I <0.012 (0.000-0.034) ng/mL Coagulation 10/15/23 Range/Units 15:21 PT 10.2 (10.0-12.5) sec APTT 24.4 (22.0-30.0) sec Lipids 10/15/23 Range/Units 15:21 Triglycerides 51.30 (0.00-149.00) mg/dL Cholesterol 207.00 H (0.00-200.00) mg/dL HDL Cholesterol 91.50 H (40.00-60.00) mg/dL Cholesterol/HDL Ratio 2.26 Ratio CBC 10/15/23 Range/Units 15:21 WBC 11.2 H (3.8-10.6) k/uL RBC 4.47 (3.80-5.40) m/uL Hgb 13.3 (11.4-16.0) gm/dL Hct 39.8 (34.0-46.0) % Plt Count 272 (150-450) k/uL Comprehensive Metabolic Panel 10/15/23 Range/Units 15:21 Sodium 132 L (137-145) mmol/L Potassium 4.2 (3.5-5.1) mmol/L Chloride 101 (98-107) mmol/L Carbon Dioxide 20 L (22-30) mmol/L BUN 12 (7-17) mg/dL Creatinine 0.61 (0.52-1.04) mg/dL Glucose 87 (74-99) mg/dL Calcium 9.4 (8.4-10.2) mg/dL AST 31 (14-36) U/L ALT 23 (4-34) U/L Alkaline Phosphatase 106 (38-126) U/L Total Protein 7.7 (6.3-8.2) g/dL Albumin 4.6 (3.5-5.0) g/dL Current Medications Generic Name Dose Route Start Last Admin Trade Name Freq PRN Reason Stop Dose Admin Aspirin 325 mg 10/16/23 09:00 10/16/23 08:25 Aspirin 325 Mg Tab PO 325 mg DAILY SIMONE Administration Nitroglycerin 0.4 mg 10/15/23 18:23 Nitroglycerin Sl Tabs 0.4 Mg Tab SUBLINGUAL Q5M PRN Chest Pain Nitroglycerin 1 inch 10/16/23 00:00 10/16/23 06:50 Nitroglycerin Oint 1 Inch/Gm Packet TOPICAL 1 inch Q6HR SIMONE Administration Intake and Output 10/15/23 10/16/23 10/16/23 22:59 06:59 14:59 Other: # Voids 2 Weight 61.235 kg 10/15/23 15:21 10/15/23 15:21
--- NOTE | 2023-10-16 13:39 | CA ---
Transthoracic Echo Report Name: Lauren Sabillon Age: 58 Gender: F : 1965 Exam Date: 10/16/2023 10:48 Exam Location: [facility] Ht (in): 68 Wt (lb): 135 Ordering Physician: Elise Melendrez Attending/Referring Phys: [id number], Aneesh Director Of Operations [facility] Christine Griggs RDCS Procedure CPT: Indications: LV function, CP Cardiac Hx: Technical Quality: Fair Contrast 1: Total Dose (mL): Contrast 2: Total Dose (mL): MEASUREMENTS (Male / Female) Normal Values 2D ECHO LV Diastolic Diameter PLAX 3.6 cm 4.2 - 5.9 / 3.9 - 5.3 cm LV Systolic Diameter PLAX 2.2 cm IVS Diastolic Thickness 0.7 cm 0.6 - 1.0 / 0.6 - 0.9 cm LVPW Diastolic Thickness 0.8 cm 0.6 - 1.0 / 0.6 - 0.9 cm LV Relative Wall Thickness 0.4 RV Internal Dim ED PLAX 2.8 cm LA Volume 29.6 cm??? 18 - 58 / 22 - 52 cm??? LA Volume Index 17.3 cm???/m??? 16 - 28 cm???/m??? M-MODE Aortic Root Diameter MM 2.6 cm LA Systolic Diameter MM 3.0 cm LA Ao Ratio MM 1.1 AV Cusp Separation MM 1.5 cm DOPPLER AV Peak Velocity 165.9 cm/s AV Peak Gradient 11.0 mmHg AV Mean Velocity 124.0 cm/s AV Mean Gradient 6.6 mmHg AV Velocity Time Integral 35.9 cm LVOT Peak Velocity 95.6 cm/s LVOT Peak Gradient 3.7 mmHg LVOT Velocity Time Integral 20.8 cm MV Area PHT 4.8 cm??? Mitral E Point Velocity 89.4 cm/s Mitral A Point Velocity 82.2 cm/s Mitral E to A Ratio 1.1 MV Deceleration Time 158.7 ms MV E' Velocity 6.2 cm/s Mitral E to MV E' Ratio 14.3 TR Peak Velocity 214.1 cm/s TR Peak Gradient 18.3 mmHg Right Ventricular Systolic Press 22.8 mmHg FINDINGS Left Ventricle Normal Left ventricular size, wall thickness, systolic function with no obvious regional wall motion abnormalities. Normal Left ventricular diastolic filling pattern. Left ventricular ejection fraction is estimated at 55-60 %. Right Ventricle Normal right ventricular size and function. Right ventricular systolic pressure within normal limits. Right Atrium Normal right atrial size. Left Atrium Normal left atrial size. Mitral Valve Structurally normal mitral valve. Aortic Valve Trileaflet aortic valve. No aortic valve stenosis or regurgitation. Aortic valve sclerosis. Tricuspid Valve Structurally normal tricuspid valve. Mild tricuspid regurgitation. Pulmonic Valve Structurally normal pulmonic valve. Trace pulmonic regurgitation. Pericardium No pericardial effusion. Aorta Normal size aortic root and proximal ascending aorta. CONCLUSIONS Left ventricular ejection fraction 55-60% RVSP 22 No aortic regurgitation Mild tricuspid regurgitation Previewed by: Dr. Brian Ross DO (Electronically Signed) Final Date: 16 Oct 2023 13:38
--- NOTE | 2023-10-16 14:26 | CA ---
Stress Echo Report Lauren Sabillon Age: 58 Gender: F : 1965 Exam Date: 10/16/2023 11:16 Exam Location: [facility] Ht (in): 68 Wt (lb): 135 Ordering Physician: Elise Melendrez Referring Physician: [id number] Yardage Control Clerk: GRIS Technologist Procedure CPT: Indication: CP ICD-9 Codes: Rhythm: Patient History: Cardiac Medications: SEE CHART Medications in past 24 hours: Contrast: N/A Stress Results Protocol: Gato Total dose(mL): NA Exercise Duration (min:sec): 2:[address] Depression (mm): Angina Score: Morgan Score: METS: 3.8 Resting HR: 102 Resting BP: 138 / 73 Peak HR: 149 Peak BP: 171 / 79 Max Predicted HR: 162 92 % Max Predicted HR Target HR: 138 Double Product: [id number] Stress Summary: BP Response: Reason for Termination: Reached target heart rate or work-load Cardiac Symptoms: NO SYMPTOMS ECG Analysis Resting ECG: Stress ECG: Arrhythmia: Echo Analysis Resting Echo: Peak Echo Analysis: MEASUREMENTS (Male/Female) Normal Values CONCLUSIONS Patient underwent exercise stress echo with a Gato protocol treadmill stress test. Patient exercised into Stage 1 for a total of 2 minutes and 29 seconds reaching a total of 3.8 METS. Patient's maximum heart rate was 149 which represented 91% age- predicted maximum heart rate. Stress EKG portion: At baseline patient's EKG showed normal sinus rhythm, normal axis, no significant ST or T wave abnormalities. At peak exercise, EKG showed no significant change from baseline. Stress echo portion: 2-D echocardiogram was performed in the parasternal long, personal short, apical 2 and apical four-chamber views at rest, peak exercise and in recovery. At baseline, echocardiogram showed left ventricular ejection fraction 55% without wall motion abnormalities. With peak exercise, echocardiogram shows improvement in left ventricular ejection fraction, increase contractility, decrease in left ventricular end systolic dimension without wall motion abnormalities consistent with a normal response to exercise. Conclusions: 1. Normal EKG and echo response to exercise without evidence of inducible ischemia. 2. Poor exercise capacity. Dr. Brian Ross DO (Electronically Signed) Final Date: 16 Oct 2023 14:24
[2023-10-16 15:05] VITALS: BP 106/69; PULSE 92; RESP 14; TEMP 98.3
[2023-10-16] MEDS ORDERED: HEPARIN SODIUM,PORCINE 5,000 UNIT/ML 1 ML VIAL SQ SCH (16:00)
== END 2023-10-16 16:23 | disposition home or self-care (01) ==
LOC: EC 13:24 → 6NMEDSUR 18:24
PROVIDERS: ADMIT Hospitalist; ATTEND Hospitalist
DX: R07.89 Other chest pain (principal); F41.9 Anxiety disorder, unspecified; E78.00 Pure hypercholesterolemia, unspecified; K21.9 Gastro-esophageal reflux disease without esophagitis; F17.200 Nicotine dependence, unspecified, uncomplicated; Z79.899 Other long term (current) drug therapy; Z88.2 Allergy status to sulfonamides; Z82.49 Family history of ischemic heart disease and other diseases of the circulatory system
CPT/HCPCS: 96374; 99285; 36415; 93005; 93306; 93351; 85379; 80061; 80053; 83690; 83735; 84484; 85025; 85610; 85730; 71046; G0378 ×2; J2060

== ENCOUNTER → 2024-02-16 | Outpatient (CLI) | payer MEDICARE ==
--- NOTE | 2024-02-16 08:50 | XR ---
EXAMINATION TYPE: XR foot complete RT DATE OF EXAM: 02/16/2024 COMPARISON: NONE HISTORY: Pain TECHNIQUE: Three views are submitted. FINDINGS: The osseous structures are intact. There is no acute fracture or dislocation. Mild first MTP joint narrowing. Mild generalized osteopenia. No erosive changes. IMPRESSION: 1. Mild first MTP joint arthropathy. [facility], , 02/16/2024 8:47 AM
--- NOTE | 2024-02-17 12:54 | CT ---
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 CONTRAST: CT scan of the chest is performed with IV Contrast, patient injected with 80 mL of Isovue 300. FINDINGS: LUNGS: The lungs are grossly clear, there is no concerning parenchymal mass or nodule identified. T here is no pleural effusion or pneumothorax seen. The tracheobronchial tree is patent. MEDIASTINUM: There are no greater than 1 cm hilar or mediastinal lymph nodes. No pericardial effusi on is seen. Thoracic aorta is of normal caliber. The heart is not enlarged. UPPER ABDOMEN: There is a partially visualized exophytic mass arising from the anterior lip of the up per pole left kidney measuring 4.7 x 3.9 cm felt to reflect renal cell carcinoma until proven otherwi se. Dedicated CT of the abdomen and pelvis is recommended. OTHER: Expansile mass at the T10-T11 level to the right of midline likely reflective of a right gang lion cyst or perineural cyst. Mass of other etiology is not excluded. Confirmation with MRI is advise d. IMPRESSION: 1.There is a partially visualized exophytic mass arising from the anterior lip of the upper pole left kidney measuring 4.7 x 3.9 cm felt to reflect renal cell carcinoma until proven otherwise. Dedicated CT of the abdomen and pelvis is recommended. 2.Expansile mass at the T10-T11 level to the right of midline likely reflective of a right ganglion c yst or perineural cyst. Mass of other etiology is not excluded. Confirmation with MRI is advised. 3. No pulmonary nodule identified at this time. [facility], , 02/17/2024 12:52 PM
== END | disposition home or self-care (01) ==
LOC: RADCTMAIN 08:18
PROVIDERS: ATTEND Family Medicine
DX: M19.071 Primary osteoarthritis, right ankle and foot (principal); N28.89 Other specified disorders of kidney and ureter; G95.89 Other specified diseases of spinal cord; R91.1 Solitary pulmonary nodule
CPT/HCPCS: 71260

== ENCOUNTER → 2024-02-19 | Outpatient (CLI) | payer MEDICARE ==
[2024-02-19 09:34] LABS: African American GFR (CKD) >90 (>60 ml/min/1.73 sqM); Blood Urea Nitrogen 11 mg/dL (7-17); Non-African American GFR(CKD) >90 (>60 ml/min/1.73 sqM)
--- NOTE | 2024-02-19 11:11 | CT ---
EXAMINATION TYPE: CT abdomen pelvis w con DATE OF EXAM: 02/19/2024 COMPARISON: 12/06/2017 HISTORY: Renal mass CT DLP: 741 mGycm Automated exposure control for dose reduction was used. TECHNIQUE: Helical acquisition of images was performed from the lung bases through the pelvis. Nonionic IV contrast was provided. FINDINGS: The lung bases are clear. The gallbladder is normal without distention, wall thickening, pericholecystic fluid or gallstones. T here is no biliary ductal dilatation. There is no focal mass or organomegaly involving the liver, pancreas, spleen or adrenal glands. There is a 5.1 x 3.7 cm heterogeneously enhancing mass in the anterior left kidney highly suspicious for neoplasm. There is a 2.4 cm well-circumscribed mass in the lateral left kidney which has grown in size compared to the prior study where it measured approximately 1 cm. It possibly represents a hemo rrhagic cyst or secondary neoplasm. There is no retroperitoneal adenopathy or hemorrhage in the caliber of the abdominal aorta is normal. The bowel loops are normal in caliber and there is no evidence of dilatation or obstruction. No infl ammatory changes are identified in the bowel wall or mesentery. There is no free intraperitoneal air or fluid. No pelvic mass, free fluid, abscess or adenopathy. The osseous structures and soft tissues are intact. There are no lytic osseous lesions IMPRESSION: 1. 5.1 x 3.7 cm heterogeneously enhancing mass in the anterior left kidney highly suspicious for keshawn l cell carcinoma/neoplasm. Further workup is recommended. 2. 2.4 centimeter well-circumscribed mass in the lateral left kidney either a hemorrhagic cyst or sec ondary neoplasm. 3. No evidence of retroperitoneal adenopathy or metastatic disease to the lungs, liver or osseous str uctures. [facility], , 02/19/2024 11:09 AM
== END | disposition home or self-care (01) ==
LOC: RADCTMAIN 08:25
PROVIDERS: ATTEND Family Medicine
DX: N28.89 Other specified disorders of kidney and ureter (principal)
CPT/HCPCS: 36415; 74177; 82565; 84520

== ENCOUNTER → 2024-03-01 | Outpatient (CLI) | payer MEDICARE ==
--- NOTE | 2024-03-01 09:43 | MR ---
INDICATION: Patient age:Female; 58 years old; Reason for study: L72.0 epidermal cyst; [facility]. COMPARISON: CT abdomen and pelvis 04/08/2018, 02/19/2024, CT chest 02/16/2024, MR thoracic spine 010. . TECHNIQUE: Multi planar, multi sequence imaging was performed after the uneventful administration of 6 mL Gadavist intravenously. FINDINGS: The thoracic vertebral bodies have preserved heights and alignment. The osseous structure have normal signal intensity. There is a lobulated thin-walled T2 hyperintense nonenhancing cystic lesion at T10 with extension through the right T10-T11 and T9-T10 right intervertebral foramen. There is again pos terior scalloping of the T10 vertebral body. Measures approximately 2.7 x 2.8 x 4.3 cm in AP, TV, CC dimensions (series 601, image 12). Previously measured 2.3 x 2.8 x 4.2 cm. This results in minimal de viation of the spinal cord to the left again. Additionally there is a second left foraminal T2 signal hyperintense nonenhancing cystic lesion at the left T10-T11 intervertebral foramen which is increase d in size now measuring 0.8 cm, previously 0.6 cm. No abnormal signal within the spinal cord. No STIR signal abnormality identified. No gucci disc herniation or other spinal canal stenosis identified. I ncidental sacral Tarlov cysts. Multilevel disc desiccation with small Schmorl's nodes. Mild spondyli tic spurring in the lower thoracic spine. Partial evaluation of heterogenous enhancing left renal mass measuring up to 4.2 cm. As seen on prior CT. IMPRESSION: 1. Marginal increase in size of bilateral thoracic lateral meningoceles. 2. Mild spondylolysis and multilevel degenerative disc demonstrated. No gucci disc herniation. 3. Partial visualization of known left renal mass highly suspicious for renal cell carcinoma/neoplas [facility]Radu [facility], , 03/01/2024 9:41 AM
== END | disposition home or self-care (01) ==
LOC: RADMRIMAIN 05:59
PROVIDERS: ATTEND Family Medicine
DX: L72.0 Epidermal cyst (principal); N28.89 Other specified disorders of kidney and ureter; M51.44 Schmorl's nodes, thoracic region; Q05.9 Spina bifida, unspecified
CPT/HCPCS: 72157

== ENCOUNTER → 2024-03-05 | Outpatient (CLI) | payer MEDICARE ==
--- NOTE | 2024-03-05 18:57 | PE ---
EXAMINATION TYPE: PET CT fusion skull to thigh DATE OF EXAM: 03/05/2024 CLINICAL INDICATION:Female, 58 years old with history of C64.2 renal ca; TECHNIQUE: Following the intravenous administration of 8.72 mCi of F-18 FDG, whole body images are performed from the skull base to the midthigh. Images are reviewed on the computer in the coronal, a xial, and sagittal planes. Reconstructed rotating images are created on independent workstation and reviewed on the computer. A non-contrast CT is performed in conjunction with the PET scan. Glucose level 87 mg/dL CT DLP: 244.83 mGycm, Automated exposure control for dose reduction was used. COMPARISON: CT 02/19/2024, 02/16/2024, 04/08/2018, PET/CT None, MRI: 03/01/2024 FINDINGS: Mediastinal SUV mean is 2.8. Hepatic parenchyma SUV mean is 3.3. Brown fat uptake identified. SKULL BASE AND NECK: There is some opacification identified within the vallecula space with a maximum SUV of 5.3. CHEST, MEDIASTINUM, AND HILAR REGION: No suspicious radiotracer activity. ABDOMEN AND PELVIS: Redemonstration of left anterior upper pole heterogenous renal mass measuring 5.3 x 3.7 cm. The demon strates a max SUV of 4.5. Additional posterior left mid kidney partially exophytic 2.5 cm lesion with a maximum SUV of 4.5. MUSCULOSKELETAL STRUCTURES: No suspicious radiotracer activity. OTHER CT: Biapical pleural-parenchymal scarring. Post hysterectomy changes. Redemonstration non-FDG a vid bilateral thoracic lateral meningoceles involving the lower thoracic spine. IMPRESSION: 1. Redemonstration of 2 left renal lesions which demonstrate mild radiotracer uptake. Both lesions a re still suspicious for renal cell carcinoma despite only mild radiotracer uptake until proven otherw ise. 2. Opacification within the vallecular space with mild FDG uptake. This is indeterminate but base of tongue mass or lingual neoplasm versus infection/inflammation is not excluded. Direct visualization is recommended. 3. No other suspicious radiotracer uptake. [facility], , 03/05/2024 6:55 PM
== END | disposition home or self-care (01) ==
LOC: RADPETMAIN 06:28
PROVIDERS: ATTEND Internal Medicine Hematology & Oncology
DX: C64.2 Malignant neoplasm of left kidney, except renal pelvis
CPT/HCPCS: 78815

== ENCOUNTER → 2024-04-23 | Outpatient (CLI) | payer MEDICARE ==
[2024-04-23 11:08] LABS: Magnesium 2.1 mg/dL (1.5-2.4); Phosphorus 3.4 mg/dL (2.4-5.1)
== END | disposition home or self-care (01) ==
LOC: LABWHC1 07:02
DX: Z00.00 Encounter for general adult medical examination without abnormal findings (principal); N28.89 Other specified disorders of kidney and ureter; E21.3 Hyperparathyroidism, unspecified
CPT/HCPCS: 36415; 82306; 83735; 84100